=== PATIENT | female | born 1970 | race Caucasian/White ===

== ENCOUNTER 2017-07-29 15:16 | Inpatient (IN) | payer MEDICARE, MEDICAID, SELFPAY ==
[2017-07-29] VITALS (20 sets, daily range): BP systolic 62–124; BP diastolic 33–74; PULSE 20–104; RESP 16–26; TEMP 35.8–36.6; O2SAT 92–100; BMI 25.2; BMI 26.4
[2017-07-29 16:04] LABS: Basophils % 0.1 % (0.1-2.0); Eosinophils % 0.1 % (0.1-12.0); Hematocrit 29.4 % (37.0-47.0); Hemoglobin 9.1 g/dL (12.2-16.2); Lymphocytes % 8.8 K/mm3 (10-50); Mean Corpuscular Hemoglobin 30.4 pg (27.0-31.2); Mean Corpuscular Volume 97.9 fl (81-99); Mean Platelet Volume 7.4 fl (7.4-10.4); Monocytes # 0.7 K/mm3 (0.1-1.0); Monocytes % 5.7 % (1.7-9.3); Neutrophils # 9.8 K/mm3 (1.8-7.8); Neutrophils % 85.2 % (37.0-80.0); Platelet Count 521 K/mm3 (142-424); Red Blood Count 3.01 M/mm3 (4.20-5.40); Red Cell Distribution Width 13.8 % (11.5-17.5); White Blood Count 11.5 K/mm3 (4.8-10.8)
[2017-07-29 16:07] LABS: MANUAL DIFFERENTIAL MANUAL DIFFERENTIAL (MANUAL DIFF)
--- NOTE | 2017-07-29 16:10 | XR_ITS ---
XR chest portable HISTORY: Shortness of air ITS.REASON: soa ORDERING PHYSICIAN: Qian Silverman MD PATIENT AGE: 47 years COMPARISON: 03/31/2017 FINDINGS: Prior median sternotomy with CABG. Normal heart size.. Patchy density is present in the right midlung and right lower lobe related to an area of atelectasis or infiltrate. Upright PA and lateral chest x-ray suggestive thorough evaluation. Remaining lungs are clear. No acute bony anomalies. IMPRESSION: Patchy infiltrate or atelectasis in the right mid and lower lung
--- NOTE | 2017-07-29 16:15 | HMH.EDWEAK ---
ED Disposition Clinical Impression: Congestive heart failure (CHF), COPD (chronic obstructive pulmonary disease), Renal failure, Hypotension, Tobacco use, Non-compliance Disposition: Still a Patient Condition on Discharge: Good Referrals: Juan Cope MD [Primary Care Provider] - - Critical Care Critical Care Time: No Attestation: On 07/29/17, the high probability of a clinically significant, sudden or life threatening deterioration of the following system(s) required my full and direct attention, intervention and personal management. The time I documented below is in addition to time spent performing reported procedures but includes the following listed in this critical care notation. Medical Decision Making Vital Signs: 07/29/17 15:17 07/29/17 15:43 07/29/17 16:56 Temperature 97.9 F Temperature Source Temporal Artery Scan Pulse Rate [Right Brachial] 89 77 78 Respiratory Rate 26 H 26 H 26 H Blood Pressure [Right Arm] 62/46 74/55 82/50 Blood Pressure Mean [Right Arm] 51 61 60 Blood Pressure Source [Right Arm] Automatic Cuff Automatic Cuff Blood Pressure Position [Right Arm] Sitting Sitting 02 Sat by Pulse Oximetry 98 98 99 Oxygen Delivery Method Nasal Cannula Nasal Cannula Nasal Cannula Oxygen Flow Rate (LPM) 3 3 3 07/29/17 17:18 07/29/17 17:32 07/29/17 17:57 Temperature Temperature Source Pulse Rate [Right Brachial] 68 71 70 Respiratory Rate 26 H 26 H 26 H Blood Pressure [Right Arm] 68/33 67/44 75/47 Blood Pressure Mean [Right Arm] 44 51 56 Blood Pressure Source [Right Arm] Automatic Cuff Automatic Cuff Automatic Cuff Blood Pressure Position [Right Arm] Sitting Sitting Sitting 02 Sat by Pulse Oximetry 100 100 100 Oxygen Delivery Method Nasal Cannula Nasal Cannula Nasal Cannula Oxygen Flow Rate (LPM) 3 3 3 - Lab Data Lab results reviewed: Yes: I reviewed the patient's lab results. Lab Results 07/29/17 15:45: WBC 11.5 H, RBC 3.01 L, Hgb 9.1 L, Hct 29.4 L, MCV 97.9, MCH 30.4, MCHC 31.0 L, RDW 13.8, Plt Count 521 H, MPV 7.4, Neut % (Auto) 85.2 H, Lymph % (Auto) 8.8 L, [place] % (Auto) 5.7, Eos % (Auto) 0.1, Baso % (Auto) 0.1, Neut # (Auto) 9.8 H, Lymph # (Auto) 1.0, [place] # (Auto) 0.7, Eos # (Auto) 0.0, Baso # (Auto) 0.0, Total Counted 100, Neutrophils % (Manual) 85 H, Band Neutrophils % 1.0, Lymphocytes % (Manual) 7 L, Monocytes % (Manual) 7, Platelet Estimate Slight increase, RBC Morphology Normal 07/29/17 15:45: Sodium 127 L, Potassium 4.6, Chloride 85 L, Carbon Dioxide 32, Anion Gap 14.6, BUN 19 H, Creatinine 2.10 H, Estimated Creat Clear 31, Estimated GFR 25 L, Est GFR ( Amer) 31 L, Glucose 109 H, Calcium 8.7, Total Bilirubin 1.2 H, AST 3295 H*, ALT 1167 H*, Alkaline Phosphatase 177 H, Total Creatine Kinase 100, CK-MB (CK-2) 0.9, CK-MB (CK-2) Rel Index 0.9, Troponin I 0.03, Total Protein 6.5, Albumin 2.6 L, Globulin 3.9 H, Albumin/Globulin Ratio 0.7 L 07/29/17 15:45: Influenza Type A Ag Negative, Influenza Type B Ag Negative 07/29/17 15:45: Lactic Acid 3.7 H 07/29/17 15:45: B-Natriuretic Peptide 3020 H Result diagrams: 07/29/17 15:45 07/29/17 15:45 Orders (Tests/Meds): ED MEDICATIONS Generic Name Dose Route Start Last Admin Trade Name Freq PRN Reason Stop Dose Admin Albuterol/Ipratropium 3 ml 07/29/17 16:15 Duoneb 3ml Neb IH 08/28/17 16:14 Q1H EMMIE Norepinephrine Bitartrate 8 mg 258 mls @ 3.87 mls/hr 07/29/17 17:30 07/29/17 17:44 / Dextrose IV 08/28/17 17:29 2 mcg/min .Q24H EMMIE 3.87 mls/hr Protocol Administration 2 MCG/MIN Discontinued Medications Generic Name Dose Route Start Last Admin Trade Name Freq PRN Reason Stop Dose Admin Sodium Chloride 500 mls @ 999 mls/hr 07/29/17 16:15 07/29/17 16:15 Sod Chlor 0.9% 1000ml Bag IV 07/29/17 16:45 999 mls/hr .Q31M EMMIE Administration Ondansetron HCl 4 mg 07/29/17 18:23 Zofran 4mg/2ml Vial IV 07/29/17 18:24 ONCE ONE ORDERS Category Date Time Status La
--- NOTE | 2017-07-29 16:18 | ED_ITS ---
ED Disposition Clinical Impression: Congestive heart failure (CHF), COPD (chronic obstructive pulmonary disease), Renal failure, Hypotension, Tobacco use, Non-compliance Disposition: Still a Patient Condition on Discharge: Good Referrals: Juan Cope MD [Primary Care Provider] - - Critical Care Critical Care Time: No Attestation: On 07/29/17, the high probability of a clinically significant, sudden or life threatening deterioration of the following system(s) required my full and direct attention, intervention and personal management. The time I documented below is in addition to time spent performing reported procedures but includes the following listed in this critical care notation. Medical Decision Making Vital Signs: 07/29/17 15:17 07/29/17 15:43 07/29/17 16:56 Temperature 97.9 F Temperature Source Temporal Artery Scan Pulse Rate [Right Brachial] 89 77 78 Respiratory Rate 26 H 26 H 26 H Blood Pressure [Right Arm] 62/46 74/55 82/50 Blood Pressure Mean [Right Arm] 51 61 60 Blood Pressure Source [Right Arm] Automatic Cuff Automatic Cuff Blood Pressure Position [Right Arm] Sitting Sitting 02 Sat by Pulse Oximetry 98 98 99 Oxygen Delivery Method Nasal Cannula Nasal Cannula Nasal Cannula Oxygen Flow Rate (LPM) 3 3 3 07/29/17 17:18 07/29/17 17:32 07/29/17 17:57 Temperature Temperature Source Pulse Rate [Right Brachial] 68 71 70 Respiratory Rate 26 H 26 H 26 H Blood Pressure [Right Arm] 68/33 67/44 75/47 Blood Pressure Mean [Right Arm] 44 51 56 Blood Pressure Source [Right Arm] Automatic Cuff Automatic Cuff Automatic Cuff Blood Pressure Position [Right Arm] Sitting Sitting Sitting 02 Sat by Pulse Oximetry 100 100 100 Oxygen Delivery Method Nasal Cannula Nasal Cannula Nasal Cannula Oxygen Flow Rate (LPM) 3 3 3 - Lab Data Lab results reviewed: Yes: I reviewed the patient's lab results. Lab Results 07/29/17 15:45: WBC 11.5 H, RBC 3.01 L, Hgb 9.1 L, Hct 29.4 L, MCV 97.9, MCH 30.4, MCHC 31.0 L, RDW 13.8, Plt Count 521 H, MPV 7.4, Neut % (Auto) 85.2 H, Lymph % (Auto) 8.8 L, [place] % (Auto) 5.7, Eos % (Auto) 0.1, Baso % (Auto) 0.1, Neut # (Auto) 9.8 H, Lymph # (Auto) 1.0, [place] # (Auto) 0.7, Eos # (Auto) 0.0, Baso # (Auto) 0.0, Total Counted 100, Neutrophils % (Manual) 85 H, Band Neutrophils % 1.0, Lymphocytes % (Manual) 7 L, Monocytes % (Manual) 7, Platelet Estimate Slight increase, RBC Morphology Normal 07/29/17 15:45: Sodium 127 L, Potassium 4.6, Chloride 85 L, Carbon Dioxide 32, Anion Gap 14.6, BUN 19 H, Creatinine 2.10 H, Estimated Creat Clear 31, Estimated GFR 25 L, Est GFR ( Amer) 31 L, Glucose 109 H, Calcium 8.7, Total Bilirubin 1.2 H, AST 3295 H*, ALT 1167 H*, Alkaline Phosphatase 177 H, Total Creatine Kinase 100, CK-MB (CK-2) 0.9, CK-MB (CK-2) Rel Index 0.9, Troponin I 0.03, Total Protein 6.5, Albumin 2.6 L, Globulin 3.9 H, Albumin/ Globulin Ratio 0.7 L 07/29/17 15:45: Influenza Type A Ag Negative, Influenza Type B Ag Negative 07/29/17 15:45: Lactic Acid 3.7 H 07/29/17 15:45: B-Natriuretic Peptide 3020 H Result diagrams: 07/29/17 15:45 07/29/17 15:45 Orders (Tests/Meds): ED MEDICATIONS Generic Name Dose Route Start Last Admin Trade Name Freq PRN Reason Stop Dose Admin Albuterol/Ipratropium 3 ml 07/29/17 16:15 Duoneb 3ml Neb IH 08/28/17 16:14 Q1H EMMIE Norepinephri
[2017-07-29 16:21] LABS: Lymphocytes % 7 % (10-50); Monocytes % 7 % (2-9); Neutrophils % 85 % (42-76); Platelet Estimate Slight Increase; RBC Morphology Normal; Total Cells Counted 100
[2017-07-29 16:25] LABS: Albumin Level 2.6 gm/dL (3.4-5.0); Albumin/Globulin Ratio 0.7 (1.1-1.8); Alkaline Phosphatase 177 U/L (46-116); Anion Gap 14.6 mEq/L (5-15); Bilirubin,Total 1.2 mg/dL (0.2-1.0); Blood Urea Nitrogen 19 mg/dL (7-18); CKMB Relative Index 0.9 U/L (0-4.0); Calcium 8.7 mg/dL (8.5-10.1); Carbon Dioxide 32 mmol/L (21.0-32.0); Chloride 85 mmol/L (98-107); Creatine Kinase 100 U/L (26-192); Creatine Kinase MB 0.9 mg/ml (0.0-3.6); Creatinine Clearance Estimated 31 mL/min (0-300); Estimated Glomerular Filt Rate 25 ml/min (>60); GFR (African American) 31 ML/MIN (>60); Globulin 3.9 gm/dl (1.3-3.2); Glucose 109 mg/dL (74-106); Potassium 4.6 mmoL/L (3.5-5.1); Sodium 127 mmol/L (136-145); Total Protein,Serum 6.5 gm/dL (6.4-8.2); Troponin I 0.03 ng/ml (0.00-0.06)
[2017-07-29 16:30] LABS: Alanine Aminotransferase 1167 U/L (12-78)
[2017-07-29 16:53] LABS: Lactic Acid 3.7 mmol/L (0.4-2.0); Reflex Lactic Add Lactic Reflex
[2017-07-29 17:38] LABS: Aspartate Amino Transferase 3295 U/L (15-37)
--- NOTE | 2017-07-29 18:01 | PC.NURSE ---
multiple attempts per RT for ABG, unsuccessful. Notified ER MD, stated he will attempt a femoral stick.
--- NOTE | 2017-07-29 18:05 | PC.NURSE ---
Pt Levophed drip increased at this time to 4 mcg/min per ER MD order
--- NOTE | 2017-07-29 19:43 | PC.NURSE ---
Report called to Barb Foster RN on second floor at this time.
--- NOTE | 2017-07-29 19:53 | PC.NURSE ---
Contacted Dr. Byrd at this time per ER MD request r/t pt admission. Dr. Byrd stated that pt could go to step down unit at this time instead of ICU r/t improved blood pressure. Notified Dr. Byrd that pt chest xray was read as pneumonia per radiologist so ER MD ordered rocephin and azithromycin. Dr. Byrd stated he was okayed with this. webbing supervisor notified of change in status of pt admission to SCU and not ICU per Dr. Byrd, cosmetics supervisor in ER at this time.
--- NOTE | 2017-07-29 21:30 | PC.NURSE ---
TITRATED LEVOPHED DRIP TO 5MCG AT THIS TIME R/T HYPOTENSION NOTED.
--- NOTE | 2017-07-29 21:53 | PC.PHONENOTE ---
VO WAS GIVEN TO INSERT FREGOSO CATHETER PER DR. LEIVA DURING CODE. LOT NUMBER FOR FREGOSO INSERTED AT THIS TIME: [id number]. SHO/CLEAR COLORED URINE NOTED IN FREGOSO. LESS THAN 100ML UO NOTED. SPECIMEN COLLECTED AND SENT TO LAB. ILDEFONSO TYLER DURING POST MORTEM CARE NO CHANGE IN UO THAT WAS NOTED FOLLOWING INSERTION.
--- NOTE | 2017-07-29 21:55 | PC.NURSE ---
DR. RUBIO GAVE VERBAL ORDER DURING CODE TO ADMINISTER DOPAMINE DRIP WIDE OPEN
--- NOTE | 2017-07-29 22:00 | PC.NURSE ---
LABS WERE UNOBTAINABLE DURING CODE. MULTIPLE UNSUCCESSFUL ATTEMPTS WERE MADE PER STAFF MEMBERS.
[2017-07-29 22:07] LABS: Lactic Acid Follow Up (RFLX 1) 3.7 (0.4-2.0)
--- NOTE | 2017-07-29 22:20 | PC.NURSE ---
2135 PT SITTING UP IN HIGH FOWLERS POSITION IN BED. TALKING WITH PATIENT, PT RESPONDING AND ANSWERING QUESTIONS. PT C/O OF WEAKNESS FOR PAST FEW DAYS, REPORTS NAUSEA, NO EMESIS. PT BEGINS TO DRY HEAVE. REPORTS SHE IS FEELING HOT AND NEEDS TO SIT UP IN BED HIGHER. RAISED HOB TO 90 DEGREES, RETRIEVED FAN FROM SUPPLY CLOSET AND LEFT ROOM TO RETRIEVE WASH CLOTH, Lester MOON RN AT PT BEDSIDE COMMUNINCATING WITH PT. 2136 PT BECAME VERY PALE, QUESTIONED PT TO WHAT WAS WRONG. PT STATED SHE DIDN'T KNOW BUT THAT SHE DIDN'T FEEL GOOD. PT LAID HEAD BACK, CLOSED HER EYES AND STOPPED TALKING. RUBBED PT FORHEAD WITH COOL CLOTH, LISTENED TO BREATH SOUNDS. RESPIRATIONS REGULAR WITH FINE CRACKLES IN BASES AND WHEEZES THROUGHOUT. PT OPENING EYES INTERMITTENTLY AND GROANING. TAPPING PT SHOULDER AND SAYING NAME. PT RESPONDS WITH GROANS. 2137 PT STOPS RESPONDING TO NAME AND TOUCH, BEGINS STERNAL RUB. RAPID RESPONSE RED CALLED BY A KAELA MOON. A RED RN LEFT ROOM TO GET CRASH CART. PT EYES ROLLED BACK IN HER HEAD, BECAME UNRESPONSIVE TO PAIN, BEGAN AGONAL BREATHING. UNABLE TO PALPATE PULSE. CPR STARTED AND CODE BLUE CALLED. RAPID RESPONSE TEAM ARRIVED AT THIS TIME. REFER TO CODE FLOW SHEET FOR FURTHER DETAILS. 2215 CPR TERMINATED, PT PRONOUNCED. 2311 [facility] NOTIFIED, SPOKE WITH GEENA BRUNO. MRS BRUNO STATED THAT PT WAS ELIGIBLE FOR [facility] DONATION AND THAT SHE WOULD BE CONTACTING . AT PT BEDSIDE CRYING INCONSOLABLY. Kaela BRUNO STATED SHE WOULD CALL BACK IN 30 MINUTES TO TALK TO SPOUSE 2345 CALLED [facility] AGAIN TO INFORM THEM THAT PT SPOUSE WAS READY TO LEAVE AND WOULD NOT BE ANSWERING PHONE ONCE HE LEFT THE HOSPITAL. 13 RECEIVED CALL FROM GEENA BRUNO FROM [facility] STATING THAT SHE HAD SPOKEN WITH AND THAT THEY WOULD BE SENDING TEAM FOR [facility] RETRIEVAL WITHIN THE NEXT FEW HRS. INSTRUCTED TO PLACE ICE ON BOTH SIDES OF PT HEAD, CLOSE TO EARS, ONCE THE FAMILY AT LEFT [address] ICE PACKS ON BOTH SIDES OF PT HEAD COVERING JAWS AND EARS 4 RECEIVED ANOTHER CALL FROM GEENA BRUNO FROM [facility] STATING THAT SHE WAS UNABLE TO GET HOLD OF PT SPOUSE FOR THE SECOND TIME AND NEEDED TO SPEAK TO HIM AGAIN BEFORE RETRIVAL COULD TAKE PLACE. SHE SAID THAT RATHER THAN CONTINUE TO CALL SPOUSE THROUGHOUT NIGHT SHE WOULD NOT TRY TO CALL UNTIL 8 AM. ASK THAT PT BODY BE LEFT IN THE ROOM AND THAT WE KEEP ICE IN PLACE.
[2017-07-29 22:24] LABS: Microscopic,Cath URINE MICROSCOPIC (MICROSCOPIC)
[2017-07-29 22:46] LABS: Amphetamine/Metha Screen,Urine Negative ng/mL (<1000); Barbiturates Screen,Urine Negative ng/mL (<200); Benzodiazepines Screen,Urine Positive ng/mL (200); Cannabinoid Screen,Urine Positive ng/mL (<50); Cocaine Screen,Urine Negative ng/g (<300); Methadone Screen,Urine Negative ng/mL (<300); Opiate Screen,Urine Positive ng/mL (<300); Phencyclidine Screen,Urine Negative ng/mL (<25)
[2017-07-29 22:47] LABS: Appearance,Urine/Cath CLEAR (Clear); Blood, Urine/Cath Negative (Negative); Color,Urine/Cath BROWN (Yellow); Glucose,Urine/Cath (UA) Negative (Negative); Ketones,Urine/Cath Negative (Negative); Leukocyte Esterase,Cath Negative (Negative); PH,Urine/Cath 5.5 (5.0-8.5); Protein,Urine/Cath TRACE (Negative); Specific Gravity, Urine/Cath 1.025 (1.005-1.030); Urobilinogen,Cath 0.2 EU/dl (0.2)
[2017-07-29 22:48] LABS: Reflex Lactic (2 hrs) No Lactic Reflex
[2017-07-29 22:51] LABS: Bilirubin,Cath 1+ (Negative); Nitrate,Cath POSITIVE (Negative)
[2017-07-29 22:54] LABS: Amorphous Sediment,Ur/Cath 1+ /lpf
--- NOTE | 2017-07-30 01:51 | HMH.PROC ---
[facility] Procedure Note Procedure Note:: Procedure note: Orotracheal intubation with 7.5 endotracheal tube using a glide scope, oral cavity suctioned, vocal cords visualized, ET tube passed through the vocal cords, without any difficulty. Chest rise with ventilation via Ambu bag, following of the ET tube, bilateral breath sounds audible with ventilation on both lung barboza, fogging of the ET tube. Placement confirmed with CO2 detector. No epigastric borboritmi auscultated.
[2017-07-30 01:55] LABS: POC Glucose,Bedside 66 mg/dL (70-110)
[2017-07-30 01:55] LABS: POC Glucose,Bedside 70 mg/dL (70-110)
--- NOTE | 2017-07-30 01:55 | P.PCN_ITS ---
[facility] Procedure Note Procedure Note:: Procedure note: Orotracheal intubation with 7.5 endotracheal tube using a glide scope, oral cavity suctioned, vocal cords visualized, ET tube passed through the vocal cords , without any difficulty. Chest rise with ventilation via Ambu bag, following of the ET tube, bilateral breath sounds audible with ventilation on both lung barboza, fogging of the ET tube. Placement confirmed with CO2 detector. No epigastric borboritmi auscultated.
--- NOTE | 2017-07-30 01:55 | HMH.CCN ---
Critical Care Event Note Code activated: Yes Narrative: This case had a high probability of a clinically significant, sudden, or life threatening deterioration of this patient's condition which required my full and direct attention, intervention and personal management. Patient was a 47-year-old lady admitted to the hospital with pneumonia, acute renal failure, abnormal liver function tests, and hypotension. Shortly after arriving to the floor, while talking to the nurses about her home medication the patient became unresponsive and a CODE BLUE was activated. Upon me entering the room the patient was receiving chest compressions and received a first dose of epinephrine already. She was unresponsive, still on oxygen by nasal cannula, so I directed the nurse start using an Ambu bag for ventilation. Patient was intubated shortly afterwards with an 7.5 endotracheal tube, using the glidescope. [place], frothy respiratory secretions suctioned from the ET tube. Tube had to be repositioned once. Intubation successful, confirmed with CO2 detector, fogging of the tube, the rise in the pulse oximetry, vocal cords visualized during intubation. Code continued with patient unresponsive, note his pupils while dilated, unresponsive to light, no palpable pulse, no spontaneous respiration efforts. Patient remained in PEA, despite numerous doses of epinephrine administered and lengthy CPR. Patient condition remains unchanged, without any interval change in the personnel monitor recording or ever recovering her pulse. Code terminated after about 45 minutes of aggressive ACLS, at the request of patient's , allowed into the room to witness patient's resuscitation. Patient pronounced at 22:16, bailing machine operator called in. Critical care time: 30 - 74 mins [facility] Critical Care Exam Vital signs: Temp Pulse Resp BP Pulse Ox 97.5 F L 76 22 95/41 98 07/29/17 20:48 07/29/17 20:48 07/29/17 20:48 07/29/17 20:48 07/29/17 20:53
--- NOTE | 2017-07-30 02:00 | P.PN_ITS ---
Critical Care Event Note Code activated: Yes Narrative: This case had a high probability of a clinically significant, sudden, or life threatening deterioration of this patient's condition which required my full and direct attention, intervention and personal management. Patient was a 47-year-old lady admitted to the hospital with pneumonia , acute renal failure, abnormal liver function tests, and hypotension. Shortly after arriving to the floor, while talking to the nurses about her home medication the patient became unresponsive and a CODE BLUE was activated. Upon me entering the room the patient was receiving chest compressions and received a first dose of epinephrine already. She was unresponsive, still on oxygen by nasal cannula, so I directed the nurse start using an Ambu bag for ventilation. Patient was intubated shortly afterwards with an 7.5 endotracheal tube, using the glidescope. [place], frothy respiratory secretions suctioned from the ET tube. Tube had to be repositioned once. Intubation successful, confirmed with CO2 detector, fogging of the tube, the rise in the pulse oximetry, vocal cords visualized during intubation. Code continued with patient unresponsive, note his pupils while dilated, unresponsive to light, no palpable pulse, no spontaneous respiration efforts. Patient remained in PEA, despite numerous doses of epinephrine administered and lengthy CPR. Patient condition remains unchanged, without any interval change in the snow blower recording or ever recovering her pulse. Code terminated after about 45 minutes of aggressive ACLS, at the request of patient's , allowed into the room to witness patient's resuscitation. Patient pronounced at 22:16, tool operator called in. Critical care time: 30 - 74 mins [facility] Critical Care Exam Vital signs: Temp Pulse Resp BP Pulse Ox 97.5 F L 76 22 95/41 98 07/29/17 20:48 07/29/17 20:48 07/29/17 20:48 07/29/17 20:48 07/29/17 20:53
--- NOTE | 2017-07-30 07:25 | PC.NURSE ---
HANDOFF REPORT GIVEN TO Luba SYED RN. ADVISED ON INSTRUCTIONS GIVEN BY AVINASH
--- NOTE | 2017-07-30 07:31 | PC.NURSE ---
REPORT GIVEN TO Patience HOUSTON W/C
--- NOTE | 2017-07-30 07:46 | HMH.PHAVTE ---
[facility] Pharmacy VTE Monitoring - Patient Demographics Admission date: 07/29/17 Report Date: 07/30/17 Time: 07:47 Allergies/Adverse Reactions: Patient Allergies No Known Allergies Allergy (Verified 06/12/17 13:56) Height: 1.52 m Weight: 61.405 kg Patient Problems: Current Active Problems Congestive heart failure (CHF) (Acute) Renal failure (Acute) Hypotension (Acute) Tobacco use (Acute) Non-compliance (Acute) Chronic obstructive lung disease (Chronic) - VTE Risk Labs: VTE Related Lab Results Hgb 9.1 g/dL (12.2-16.2) L 07/29/17 15:45 Hct 29.4 % (37.0-47.0) L 07/29/17 15:45 Plt Count 521 K/mm3 (142-424) H 07/29/17 15:45 BUN 19 mg/dL (7-18) H 07/29/17 15:45 Creatinine 2.10 mg/dL (0.55-1.02) H 07/29/17 15:45 Estimated Creat Clear 31 mL/min (0-300) 07/29/17 15:45 Was VTE Risk Assessment Performed: Yes VTE Score: 7 VTE Risk Level: Moderate Risk - Prophylaxis VTE Prophylaxis Ordered?: Yes Types of VTE Prophylaxis: TEDS Knee High Location of Applied Device: Bilateral Lower Extremeties - VTE Diagnosis Confirmed Treatment or plan recommended: Continue Current Treatment
--- NOTE | 2017-07-30 08:08 | PC.NURSE ---
Addendum entered by Salina Lopez RN 07/30/17 08:11: Original Note: 85 ML BLOODY DRAINAGE NOTED IN SUCTION CANISTER FOLLOWING RT/MD SUCTIONED FROM ET TUBE.
--- NOTE | 2017-07-30 09:36 | PC.NURSE ---
7925 LONDON MORSE FROM [facility] CALLED AND STATED THAT THE FAMILY HAS DECLINED DONATION AND BODY MAY BE RELEASED TO HOME
[2017-07-30 10:35] LABS: VBG PH 7.37 mmol/L (7.31-7.41)
[2017-07-30 10:36] LABS: VBG PCO2 50.2 mmol/L (35-51); VBG PO2 34.6 mmol/L (28-40)
[2017-07-30 10:37] LABS: VBG Base Excess 3.4 mmol/L (-2.4-2.3); VBG HCO3 28.6 mmol/L (23-30); VBG Oxygen Saturation 52.8 % (50-70); VBG Total CO2 30.2 mmol/L (23-27)
--- NOTE | 2017-07-30 12:11 | HMH.HPDC ---
General - General Admission date: 07/29/17 Discharge date: 07/30/17 *Admission Date: 07/29/17 *Chief complaint: sob *History of present illness: pt not seen as she years old white female active smoker with history of coronary artery disease congestive heart failure and COPD. The patient developed cough and shortness of breath for the past 3 days and progressively became weak. Her brought her to the ED with a systolic blood pressure of 74/44. Started 2 IVs IV fluids and obtain labs, ABG and an chest x-ray. [facility] History I have reviewed the patient's past medical history: Yes Medical History: Reports:: Arrhythmia, Asthma, Atherosclerotic Heart Disease, Congestive Heart Failure, Chronic Obstructive Pulmonary Disease (COPD), Coronary Artery Disease, Depression, Gastroesophageal Reflux Disease(GERD), Hyperlipidemia, Hypertension, Myocardial Infarction Denies:: Cancer, Diabetes Mellitus Type 1, Diabetes Mellitus Type 2, MRSA Other Medical History: Reports: Anemia, Arthritis Other Surgeries: Yes: Angiogram, Angioplasty, CABG, Cardiac Catheterization, Coronary Stent, Open Heart Surgery, Tubal Ligation Amputation: No Fractures: No - *Social History Educational Level: Completed College Smoking Status: Current some day smoker Tobacco Type: cigarettes # Packs/Day (cigarettes): 1 Smoking End Date: [id number] Alcohol Intake: never Alcohol Intake Frequency:: holidays/special occasions only Occupational Status: disabled Housing: house Household Members: spouse, family, children, other - Psychiatric History Expresses thoughts of harming self/others: None Suicide Plan Description: No Plan Pschychiatric History:: Reports:: Depression *Family Hx:: Stroke Review of Systems - Review of Systems Review of systems:: unable to obtain (pt ) Exam Vital signs and Labs for Last 24 Hours: Temp Pulse Resp BP Pulse Ox 97.5 F L 20 L 20 93/51 92 L 07/29/17 20:48 07/29/17 21:39 07/29/17 21:30 07/29/17 21:35 07/29/17 21:35 Laboratory Results - last 24 hr 07/29/17 21:30: Lactic Acid Fup @ 4Hr 3.7 H 07/29/17 22:03: POC Glucose 66 07/29/17 22:15: Urine Color Brown, Urine Appearance Clear, Urine pH 5.5, Ur Specific Pace 1.025, Urine Protein Trace, Urine Glucose (UA) Negative, Urine Ketones Negative, Urine Blood Negative, Urine Nitrate Positive, Urine Bilirubin 1+ A, Urine Urobilinogen 0.2, Ur Leukocyte Esterase Negative, Urine WBC 5-10, Ur Transition Epith Cell 3-5, Hyaline Casts 5-10 07/29/17 22:15: Urine Opiates Screen Positive H, Ur Barbituates Screen Negative, Ur Phencyclidine Scrn Negative, Ur Amphetamines Screen Negative, U Methamphetamines Scrn Negative, U Benzodiazepines Scrn Positive H, Urine Cocaine Screen Negative, U Marijuana (THC) Screen Positive H 07/29/17 22:23: POC Glucose 70 I & O for Last 24 hours: Intake & Output 07/28/17 07/29/17 07/30/17 07/31/17 11:59 11:59 11:59 11:59 Weight 135 lb 6 oz - *Routine Respiratory Exam Comments: pt - *Routine Cardiovascular Exam Comments: pt expird - *Routine Neurological Exam pt Hospital Course Hospital Course: pt admitted and had code blue-ase had a high probability of a clinically significant, sudden, or life threatening deterioration of this patient's condition which required my full and direct attention, intervention and personal management. Patient was a 47-year-old lady admitted to the hospital with pneumonia, acute renal failure, abnormal liver function tests, and hypotension. Shortly after arriving to the floor, while talking to the nurses about her home medication the patient became unresponsive and a CODE BLUE was activated. Upon me entering the room the patient was receiving chest compressions and received a first dose of epinephrine already. She was unresponsive, still on oxygen by nasal cannula, so I directed the nurse start using an Ambu bag for ventilation. Patient was intubated shortly aft
== END 2017-07-30 12:46 | disposition expired | DRG 297 ==
LOC: ER 18:36 → 2ND 19:04
PROVIDERS: Admitting Provider Family Medicine; Emergency Provider Emergency Medicine; Family Provider Emergency Medicine; PCP Emergency Medicine; Visit Provider Emergency Medicine
DX: I46.9 Cardiac arrest, cause unspecified (principal); I13.0 Hypertensive heart and chronic kidney disease with heart failure and stage 1 through stage 4 chronic kidney disease, or unspecified chronic kidney disease; N17.9 Acute kidney failure, unspecified; I95.9 Hypotension, unspecified; I50.9 Heart failure, unspecified; Z72.0 Tobacco use; Z95.1 Presence of aortocoronary bypass graft; Z95.5 Presence of coronary angioplasty implant and graft; J44.9 Chronic obstructive pulmonary disease, unspecified; N18.9 Chronic kidney disease, unspecified; Z99.81 Dependence on supplemental oxygen; I25.10 Atherosclerotic heart disease of native coronary artery without angina pectoris
CPT/HCPCS: 31500; 36415; 71045; 80053; 80305; 81001; 82550; 82553; 82803; 82962; 83605; 83880; 84484; 85007; 85025; 87275; 87276; 92950; 93005; 93306; 94640; 96365; 96367; 99285; J0456; J2405